=== PATIENT | female | born 1980 ===

== ENCOUNTER 2017-05-11 13:42 | Emergency (ER) | payer OTHER ==
--- NOTE | 2017-05-11 13:47 | C.PDOC ---
History Of Present Illness 12 WKS EGA S/P LARGE BLOOD CLOT VB TODAY. NO ASSOC PAIN. +IUP OUTPT US 05/10 W + FH EXAM DEFERRED TO DR HUTSON NEG Time Seen by Provider: 05/11/17 13:45 History Per: Patient History/Exam Limitations: no limitations Onset/Duration Of Symptoms: Days Current Symptoms Are (Timing): Still Present Pain Scale Rating Of: 0 Associated Symptoms: denies: Fever, Chills, Back Pain, Urinary Symptoms Recent travel outside of the [place]: No Past Medical History Reviewed: Historical Data, Nursing Documentation, Vital Signs Vital Signs: Last Vital Signs Temp 97.5 F L 05/11/17 13:55 Pulse 104 H 05/11/17 13:55 Resp 20 05/11/17 13:55 BP 132/84 05/11/17 13:55 Pulse Ox 99 05/11/17 13:55 - Medical History PMH: No Chronic Diseases Family History: States: Unknown Family Hx Review Of Systems Except As Marked, All Systems Reviewed And Found Negative. Constitutional: Negative for: Fever, Chills Cardiovascular: Negative for: Chest Pain Respiratory: Negative for: Cough, Shortness of Breath Gastrointestinal: Negative for: Abdominal Pain Genitourinary: Positive for: Vaginal Bleeding. Negative for: Dysuria, Pelvic Pain Skin: Negative for: Rash Physical Exam - Physical Exam Appears: Non-toxic, No Acute Distress Skin: Normal Color, Warm, Dry Head: Atraumatic, Normacephalic Oral Mucosa: Moist Chest: Symmetrical Cardiovascular: Rhythm Regular Respiratory: Normal Breath Sounds, No Rales, No Rhonchi, No Wheezing Gastrointestinal/Abdominal: Soft, No Tenderness, No Guarding, No Rebound Back: Normal Inspection Pelvic: Other ( DEFERRED TO [facility] DR. HUTSON) Extremity: Normal ROM, Capillary Refill (< 2 sec.) Neurological/Psych: Oriented x3 ED Course And Treatment - Laboratory Results Result Diagrams: 05/11/17 14:07 05/11/17 14:07 Progress - Re-Evaluation Re-evaluation Note: 05/11/17 13:46 D/W DR HUTSON WILL EVAL IN ER 05/11/17 14:52 CLEARED FOR DC BY DR HUTSON. PT GIVEN RX PROGESTERONE 100 MG PV QHS X 30 DAYS, DC ASA AND BED REST X 1 WEEK - Data Reviewed Data Reviewed: Lab, Diagnostic imaging Disposition Counseled Patient/Family Regarding: Studies Performed, Diagnosis, Need For Followup - Disposition Referrals: YOUR,OBGYN [Other] Disposition: HOME/ ROUTINE Disposition Time: 14:53 Condition: IMPROVED Additional Instructions: TAKE PRESCRIPTIONS DIRECTED BY DR HUTSON BED REST X 1 WEEK STOP ASPIRIN IMMEDIATELY. FOLLOW UP WITH YOUR OBGYN Instructions: Threatened Miscarriage (ED) - Clinical Impression Clinical Impression: Threatened miscarriage - Scribe Statement The provider has reviewed the documentation as recorded by the Scribe SM All medical record entries made by the Scribe were at my direction and personally dictated by me. I have reviewed the chart and agree that the record accurately reflects my personal performance of the history, physical exam, medical decision making, and the department course for this patient. I have also personally directed, reviewed, and agree with the discharge instructions and disposition.
[2017-05-11 13:55] VITALS: O2SAT 99
[2017-05-11 14:17] LABS: BASO % 0.2 % (0.0-2.0); EOS # 0.1 K/uL (0.0-0.7); EOS % 1.1 % (0.0-4.0); HEMATOCRIT 35.6 % (34.0-47.0); LYMPH # 1.9 K/uL (1.0-4.3); LYMPH % 18.2 % (20.0-40.0); MEAN CELL VOLUME 90.3 fL (81.0-99.0); MEAN CORPUSCULAR HEMOGLOBIN 30.8 pg (27.0-31.0); MEAN CORPUSCULAR HGB CONC 34.1 g/dL (33.0-37.0); MEAN PLATELET VOLUME 10.4 fL (7.2-11.7); MONO # 0.4 K/uL (0.0-0.8); MONO % 4.1 % (0.0-10.0); NRBC % 0.1 % (0.0-2.0); RED CELL DISTRIBUTION WIDTH 12.5 % (11.5-14.5); WHITE BLOOD COUNT 10.2 K/uL (4.8-10.8)
[2017-05-11 14:36] LABS: CHLORIDE 99 mmol/L (98-107); SODIUM 131 mmol/L (132-148)
[2017-05-11 14:37] LABS: POTASSIUM 3.5 mmol/L (3.6-5.2)
[2017-05-11 14:39] LABS: BLOOD UREA NITROGEN 10 mg/dL (7-17); CARBON DIOXIDE 21 mmol/L (22-30); GFR AFRICAN-AMERICAN > 60
[2017-05-11 14:40] LABS: CALCIUM 9.5 mg/dl (8.6-10.4); GLUCOSE,RANDOM 108 mg/dL (65-105)
--- NOTE | 2017-05-11 14:49 | US ---
Indication: VB r/o ectopic Comparison: None available. Technique: Transabdominal ultrasound of the pelvis. Findings: The uterus measures approximately 16.5 x 7.1 x 10.8 cm. 2.0 x 1.5 x 1.7 cm probable fibroid, superior uterus. Cervix length measures approximately 4.5 cm. There is a single intrauterine fetus present. The crown-rump length measures 5.8 cm and is compatible with a gestational age of 12 weeks 2 days. There is heart motion which measured 176.4 BPM. Evidence of large subchorionic hemorrhage measuring approximately 4.4 x 1.6 x 7.9 cm. The right ovary measures 2.9 x 1.9 x 2.6 cm. The left ovary measures 3.0 x 2.1 x 2.8 cm. Blood flow was demonstrated to both ovaries. Impression: Live single intrauterine with estimated gestational age 12 weeks 2 days. heart rate 176.43 bpm. Advise an anomaly screen at 16-18 weeks gestational age. Large subchorionic hemorrhage measures approximately 4.4 x 1.6 x 7.9 cm.
--- NOTE | 2017-05-11 15:30 | CP.PCM.CON ---
History of Present Illness - History of Present Illness History of Present Illness: 36 yr at 12weeks came with c/o vaginal bleeding started at 12 pm while she was working. pt passed a big clot.no bleeding after that.no cramping.pt is on asprin prescribed by her obgyn dr mccauley.pt started bleeding little bit in the hospital.no cramping obhx 1 x c/s, 1 x sab pmh enies med pnv all nkda psh c/s soch den sono 7.9 cm subchorionic hematoma.cervix closed,+fh 12.2weeks sse min bleeding , closed pelvic ext gen old blod cervix closed,min bleeding,gravid AB+ Review of Systems - Reproductive: Female Reproductive:Female: Abnormal Vaginal Bleeding Past Patient History - Infectious Disease Hx of Infectious Diseases: None - Past Social History Smoking Status: Never Smoked - PSYCHIATRIC Hx Substance Use: No - SURGICAL HISTORY Hx Surgeries: Yes Hx Section: Yes - ANESTHESIA Hx Anesthesia: No Meds Allergies/Adverse Reactions: Allergies Allergy/AdvReac Type Severity Reaction Status Date / Time No Known Allergies Allergy Verified 05/11/17 13:47 Physical Exam - Exam Speculum exam: Vaginal Bleeding (min , cerrvix closed) Bimanual exam: NORMAL BIMANUAL EXAM (with min vb) Results - Vital Signs Recent Vital Signs: Last Vital Signs Temp 97.5 F L 05/11/17 13:55 Pulse 104 H 05/11/17 13:55 Resp 20 05/11/17 13:55 BP 132/84 05/11/17 13:55 Pulse Ox 99 05/11/17 13:55 - Labs Result Diagrams: 05/11/17 14:07 05/11/17 14:07 Labs: Laboratory Results - last 24 hr 05/11/17 05/11/17 05/11/17 14:07 14:07 14:07 WBC 10.2 RBC 3.94 Hgb 12.1 Hct 35.6 MCV 90.3 MCH 30.8 MCHC 34.1 RDW 12.5 Plt Count 191 MPV 10.4 Neut % (Auto) 76.4 H Lymph % (Auto) 18.2 L [place] % (Auto) 4.1 Eos % (Auto) 1.1 Baso % (Auto) 0.2 Neut # 7.8 H Lymph # 1.9 [place] # 0.4 Eos # 0.1 Baso # 0.0 Sodium 131 L Potassium 3.5 L Chloride 99 Carbon Dioxide 21 L Anion Gap 15 BUN 10 Creatinine 0.6 L Est GFR ( Amer) > 60 Est GFR (Non-Af Amer) > 60 Random Glucose 108 H Calcium 9.5 Beta HCG, Quant 74994.00 Blood Type AB POSITIVE Antibody Screen Negative Assessment & Plan - Assessment and Plan (Free Text) Assessment: 36 yr at 12weeks subchorionic hematoma/vaginal bleeding Plan: dc home no sex bed rest x 1week stop aspirin progestrone suppositry f/u pmd in 1-2 days if active vb go to nearest er - Date & Time Date: 05/11/17 Time: 16:00
[2017-05-11 15:49] VITALS: BP 130/80; PULSE 95; RESP 18; TEMP 97
== END 2017-05-11 15:05 | disposition home or self-care (01) ==
LOC: C.ER 13:42
DX: O20.8 Other hemorrhage in early pregnancy (principal); Z3A.12 12 weeks gestation of pregnancy